=== PATIENT | female | born 1990 | race Caucasian/White ===

== ENCOUNTER 2016-04-05 06:36 | Emergency (ER) | payer OTHER ==
[~2016-04-05 06:36] MED LIST: VICODIN5-300 PO
--- NOTE | 2016-04-05 07:21 | ED NECK/BACK PAIN COMPLAINT ---
History of Present Illness General Chief Complaint: Lower Extremity Problems Stated Complaint: "LT SIDE BACK NUMBNESS RADIATES TO TOES" Source: patient, old records Exam Limitations: no limitations Vital Signs & Intake/Output Vital Signs & Intake/Output Vital Signs Date Time Temp Pulse Resp B/P Pulse O2 O2 Flow FiO2 Ox Delivery Rate 04/05 0952 98.6 86 18 126/85 98 Room Air 04/05 0840 97.9 69 20 137/70 100 Room Air 04/05 0651 97.8 90 20 137/83 98 Room Air Allergies Coded Allergies: NO KNOWN ALLERGIES (04/19/13) Reconcile Medications Baclofen 10 MG TABLET 1 TAB PO TIDPRN PRN muscle spasm/strain HYDROCODONE/ACETAMINOPHEN (Hydrocodon-Acetaminophen 5-325) 5 MG-325 MG TABLET 1 TAB PO TID PAIN Methylprednisolone. (Medrol) 4 MG TAB.DS.PK 0 PO SEE ADMIN CRITERIA back pain Tramadol HCl (Ultram) 50 MG TABLET 1-2 TAB PO Q6PRN PRN severe pain Triage Note: PT PRESENTS TO ER C/O OF LEFT HIP PAIN THAT STARTS AT TAILBONE AREA AND RADIATES INTO HIP AND DOWN LEFT LEG. PT STATES LEG FEELS NUMB. PT STATES SHE BROKE HER TAILBONE 3 YEARS AGO AND COMPLETED TWO ROUNDS OF PT BUT PAIN HAS NOT IMPROVED Triage Nurses Notes Reviewed? yes Onset: 2 weeks Duration: week(s):, constant, continues in ED Timing: recent history Quality/Severity: moderate, radiation, sharpness Location: lumbar spine, paraspinous muscles Radiation: buttocks, upper legs, lower legs, feet Context: unknown Method of Injury: unknown Loss of Consciousness: no loss of consciousness Modifying Factors: immobilization, movement, rest Associated Symptoms: lower back pain, muscle spasm, numbness in legs/feet LMP (ages 10-50): unknown : No Patient currently breastfeeds: No HPI: Patient reports having low back injury 2 years prior to admission. 2 weeks prior to admission she complains of increased left low back pain radiating to her buttocks upper leg and lower leg described as sharp moderate to severe worse with turning bending little improvement with anti-inflammatory. She denies fever chills nausea vomiting diarrhea abdominal pain chest pain shortness breath headache dysuria rash bleeding change in bowel bladder habit change in motor function. Past History Travel History Traveled to [place] past 21 day No Medical History Any Pertinent Medical History? see below for history Neurological: NONE EENT: NONE Cardiovascular: NONE Respiratory: NONE Gastrointestinal: GERD Hepatic: NONE Renal: FREQ UTI'S Musculoskeletal: disk herniation Psychiatric: NONE Endocrine: NONE Blood Disorders: NONE Cancer(s): NONE NURSING HOME DIRECTOR/Reproductive: NONE Surgical History Surgical History: NONE Psychosocial History What is your primary language Telugu Tobacco Use: Never used Family History Hx Contributory? No Review of Systems Review of Systems Constitutional: Reports: no symptoms. Eyes: Reports: no symptoms. Ears, Nose, Throat, Mouth: Reports: no symptoms. Respiratory: Reports: no symptoms. Cardiovascular: Reports: no symptoms. Gastrointestinal/Abdominal: Reports: no symptoms. Musculoskeletal: Reports: see HPI, back pain, joint pain, muscle pain. Skin: Reports: no symptoms. Neurological/Psychological: Reports: no symptoms. All Other Systems: Reviewed and Negative Physical Exam Physical Exam General Appearance: well developed/nourished, alert, awake, anxious, moderate distress, obese Head: atraumatic, normal appearance Eyes: Bilateral: PERRL, EOMI. Ears, Nose, Throat, Mouth: hearing grossly normal Neck: normal inspection, supple, full range of motion, normal alignment Respiratory: normal breath sounds, chest non-tender, no respiratory distress, quiet respiration, lungs clear Cardiovascular: regular rate/rhythm, normal peripheral pulses, norml femoral pulses equa Peripheral Pulses: 4+ carotid (R), 4+ carotid (L) Gastrointestinal: normal bowel sounds, soft, non-tender, no organomegaly Back: normal inspection, normal range of motion, no vertebral tenderness Extremities: non-tender, normal range of motion, no ligament instability Straight Leg Raising: Right: Pain at ____ degrees (15). Left: Pain at ____ degrees (15). Sensory: Medial Le: L4R, L4L. Top of Foot: 2: L5R, L5L. Sole of Foot: 2: SIR, ANAI. Motor: Deficit L4 Right: No Deficit L4 Left: No Deficit L5 Right: No Deficit L5 Left: No Deficit S1 Right: No Deficit S1 Right: No Walk on Heels: 2: L4 Left, L4 Right. Ext. Big Toe: 4: L5 Left. 5: L5 Right. DTR: Deficit L4 Left: No Deficit L4 Right: No Deficit S1 Left: No Deficit S1 Right: No Patellar: 3: L4 Right, L4 Left. 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 as tested Skin: intact, normal color, warm/dry Progress Differential Diagnosis: cauda equina syn, herniated disc, myofascial strain, sciatica, T/L spine injury Plan of Care: Orders Procedure Date/time Status URINE 04/05 713 Complete URINALYSIS 04/05 713 Complete COMPREHENSIVE METABOLIC PANEL 04/05 713 Complete Laboratory Tests 04/05/16 0725: Anion Gap 13, Estimated GFR > 60, BUN/Creatinine Ratio 15.7, Glucose 83, Calcium 9.5, Total Bilirubin 0.7, AST 23, ALT 19, Alkaline Phosphatase 65, Total Protein 7.1, Albumin 4.5, Globulin 2.6, Albumin/Globulin Ratio 1.7, Urinalysis LIGHT H, Urine Color YEL, Urine Clarity HAZY H, Urine pH 6.0, Ur Specific [place] >= 1.030, Urine Protein 30 H, Urine Ketones NEG, Urine Nitrite NEG, Urine Bilirubin NEG, Urine Urobilinogen 0.2, Ur Leukocyte Esterase NEG, Ur Microscopic SEDIMENT EXAMINED, Urine RBC RARE, Urine WBC 1-3 H, Ur Epithelial Cells PACKD H, Urine Mucus MOD H, Urine Hemoglobin NEG, Urine Glucose NEG, Urine Test NEGATIVE Diagnostic Imaging: Viewed by Me: CT Scan. Discussed w/RAD: CT Scan. Radiology Impression: There are disc protrusions at the L4-L5 and L5-S1 levels. Asymmetric right subarticular zone stenosis with possible mass effect on the traversing right L5 nerve root at L4-L5. Suspect mild to moderate central canal stenosis at L4-L5 and mild central canal stenosis at L5-S1. Mild to moderate foraminal narrowing bilaterally at L5-S1. MRI would be more sensitive in assessing for mass effect on the traversing or exiting nerve roots. Departure Departure Time of Disposition: 936 Disposition: HOME OR SELF CARE Condition: Stable Clinical Impression Primary Impression: Sciatica of left side associated with disorder of lumbar spine Secondary Impressions: Lumbar facet arthropathy, Lumbar spinal stenosis Referrals: SHAVONNE MENDOSA,JEREMY Resendez Call for neurosurgical follow up CHERELLE PEREZ MD Call for orthopedic follow up BRE RAY MD (PCP/Family) Departure Forms: Customer Survey General Discharge Information Prescriptions: Current Visit Scripts Baclofen 1 TAB PO TIDPRN PRN muscle spasm/strain #30 TAB Tramadol HCl (Ultram) 1-2 TAB PO Q6PRN PRN severe pain #30 TAB Methylprednisolone. (Medrol) 0 PO SEE ADMIN CRITERIA #1 PAC
--- NOTE | 2016-04-05 09:23 | CT SCAN REPORT ---
EXAMINATION: CT LUMBAR SPINE WITHOUT CONTRAST CLINICAL INFORMATION: Previous back injury with left low back pain. COMPARISON: None available. TECHNIQUE: Helical non-contrast CT images were obtained through the lumbar spine and 1.25 and 2.5 mm axial reconstructions were reviewed along with sagittal and coronal MPRs. FINDINGS: There are no acute fractures and there are no acute subluxations. Lumbar alignment is maintained. Vertebral body heights are preserved. Small chronic superior endplate Schmorl's node at T12. Disc spaces are maintained. No osteolytic and osteoblastic lesions. No acute fractures no acute subluxations. No significant soft tissue findings. The L1-L2, L2-L3, and L3-L4 disc contours appear normal. No appreciable central canal stenosis or significant foraminal stenosis at these levels. L4-L5: There is a central disc protrusion that indents the ventral thecal sac. Mild bilateral facet arthropathy. Suspect mild to moderate central canal stenosis. Asymmetric right subarticular zone effacement with possible mass effect on the traversing right L5 nerve root. No appreciable foraminal stenosis. L5-S1: There is a central disc protrusion and there is mild bilateral facet arthropathy. Suspect mild central canal stenosis. Narrowing of the subarticular zones bilaterally. Mild to moderate foraminal stenosis bilaterally. IMPRESSION: There are disc protrusions at the L4-L5 and L5-S1 levels. Asymmetric right subarticular zone stenosis with possible mass effect on the traversing right L5 nerve root at L4-L5. Suspect mild to moderate central canal stenosis at L4-L5 and mild central canal stenosis at L5-S1. Mild to moderate foraminal narrowing bilaterally at L5-S1. MRI would be more sensitive in assessing for mass effect on the traversing or exiting nerve roots.
[2016-04-05] MEDS ORDERED: ULTRAM50 M1 PO (09:39)
[2016-04-05] MEDS ORDERED: MEDROL4 M2 PO (09:39)
[2016-04-05] MEDS ORDERED: BACLOFEN10 M1 PO (09:39)
[2016-04-05 09:52] VITALS: BP 126/85
== END 2016-04-05 10:00 ==
LOC: ERH 06:36
DX: M51.16 Intervertebral disc disorders with radiculopathy, lumbar region (principal); M12.88 Other specific arthropathies, not elsewhere classified, other specified site; M48.06 Spinal stenosis, lumbar region
CPT/HCPCS: 81001; 81025; 96374; 96375

== ENCOUNTER 2016-08-07 17:38 | Emergency (ER) | payer OTHER ==
[~2016-08-07] VITALS: Ht 165.1 cm; Wt 77.1 kg
[~2016-08-07 17:38] MED LIST changes: +BACLOFEN10 M1 PO; +MEDROL4 M2 PO; +ULTRAM50 M1 PO
[2016-08-07 18:13] VITALS: BP 137/93
--- NOTE | 2016-08-07 18:30 | ED EYE COMPLAINT ---
History of Present Illness General Chief Complaint: Eye Problems Stated Complaint: LEFT EYE IS RED AND PAINFULL Source: patient Exam Limitations: no limitations Vital Signs & Intake/Output Vital Signs & Intake/Output Vital Signs Date Time Temp Pulse Resp B/P B/P Pulse O2 O2 Flow FiO2 Mean Ox Delivery Rate 08/07 1813 98.2 80 15 137/93 97 Room Air Room Air Allergies Coded Allergies: No Known Allergies (08/07/16) Reconcile Medications Erythromycin Base (Erythromycin) 5 MG/GRAM (0.5 %) OINT...G. 1 FATOU OPH 4XDP BLEPHARITIS apply 1 cm ribbon into the lower conjunctival sac Polytrim (Polytrim Eye Drops) 10,000 UNIT-1 MG/ML DROPS 1 GTT OPH Q6 CONJUNCTIVITIS Triage Note: PT TO ED FOR L EYE PAIN AND REDNESS AND DRAINAGE THAT STARTED TODAY. +BLURRINESS TO EYE. Triage Nurses Notes Reviewed? yes Onset: Gradual Duration: constant Timing: single episode today Injury Environment: home Severity: severe Severity Numbers: 7 : No Patient currently breastfeeds: No HPI: Patient is a 26-year-old female who presents to emergency room with concerns of left eye pain erythema purulent discharge and blurred vision where patient states that today she or her once today contacts which she put the contact in and then noted a few hours later a gradual onset of as stated above symptoms. Patient continues to wear contacts. Patient denies any mechanism of injury. Denies any photophobia (MARYCRUZ GAMEZ) Past History Travel History Traveled to [place] past 21 day No Medical History Any Pertinent Medical History? 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 No (MARYCRUZ GAMEZ) Review of Systems Review of Systems Constitutional: Reports: no symptoms. Eyes: Reports: see HPI, blurred vision, inflammation, pain, contact lenses. Denies: blindness, foreign body sensation. Ear: Reports: no symptoms. Nose: Reports: no symptoms. Mouth: Reports: no symptoms. Throat: Reports: no symptoms. Respiratory: Reports: no symptoms. Cardiovascular: Reports: no symptoms. GI: Reports: no symptoms. Genitourinary: Reports: no symptoms. Musculoskeletal: Reports: no symptoms. Skin: Reports: no symptoms. Neurological/Psychological: Reports: no symptoms. Hematologic/Endocrine: Reports: no symptoms. Immunologic/Allergic: Reports: no symptoms. All Other Systems: Reviewed and Negative (MARYCRUZ GAMEZ) Physical Exam General Appearance: well developed/nourished, no apparent distress, alert, awake General Inspection: CONJUNCTIVAE INJECTION Eyelid: everted for exam, erythema (INFERIOR LID) Conjunctiva/Sclera: injected Cornea: examined w/fluorescein, NO FLUOROSCEINE UPTAKE EOM: intact Pupil: normal accommodation, normal pupil, PERRL General Inspection: normal inspection Eyelid: normal inspection Conjunctiva/Sclera: normal inspection Cornea: normal inspection EOM: intact Pupil: normal accommodation, normal pupil, PERRL Physical Exam Head: atraumatic Ears: Bilateral: canal normal. Nose: normal inspection Mouth/Throat: normal mouth inspection Neck: normal inspection Neurologic/Psych: awake, alert Skin: intact, normal color (MARYCRUZ GAMEZ) Progress Differential Diagnosis: corneal abrasion, corneal foreign body, conjunctivitis, detached retina, glaucoma, globe rupture, BLEPHARITIS Plan of Care: Due to history of present illness and exam findings patient will be treated for concerns of left bacterial conjunctivitis and left blepharitis inferior lid patient remove contacts prior to evaluation Patient was also administered tetracaine eyedrops prior to evaluation of eye (MARYCRUZ GAMEZ) Departure Departure Disposition: HOME OR SELF CARE Condition: Stable Clinical Impression Primary Impression: Bacterial conjunctivitis of left eye Secondary Impressions: Blepharitis of eyelid of left eye Referrals: BRE RAY MD (PCP/Family) GISELL MENDOSA,SHARIF Resendez Additional Instructions: As discussed please discontinue using contact lenses until you are symptom-free. Begin the prescription Polytrim eyedrops and erythromycin ointment as directed for your symptoms. Prescription is waiting a [facility]. If symptoms worsen return to emergency room. If no better in 3 days follow-up with primary care doctor and/or follow-up with order packer or packager Dr. JAMESON Departure Forms: Customer Survey General Discharge Information Prescriptions: Current Visit Scripts Polytrim (Polytrim Eye Drops) 1 GTT OPH Q6 #10 ML Erythromycin Base (Erythromycin) 1 FATOU OPH 4XDP #3.5 GM apply 1 cm ribbon into the lower conjunctival sac (MARYCRUZ GAMEZ) PA/SENIOR SOFTWARE QUALITY ANALYST Co-Sign Statement Statement: ED Attending supervision documentation- I saw and evaluated the patient. I have also reviewed all the pertinent lab results and diagnostic results. I agree with the findings and the plan of care as documented in the PA's/SENIOR SOFTWARE QUALITY ANALYST's documentation. x I have reviewed the ED Record and agree with the PA's/SENIOR SOFTWARE QUALITY ANALYST's documentation. [] Additions or exceptions (if any) to the PAs/SENIOR SOFTWARE QUALITY ANALYST's note and plan are summarized below: [] (PIPE MENDOSA,CAROLANN)
[2016-08-07] MEDS ORDERED: POLYTRIM EYE DR10 ML OPH (18:57)
[2016-08-07] MEDS ORDERED: ERYTHROMYCIN1 GM OPH (18:57)
== END 2016-08-07 19:06 ==
LOC: ERH 17:38
DX: H10.9 Unspecified conjunctivitis (principal); H01.005 Unspecified blepharitis left lower eyelid

== ENCOUNTER 2017-04-29 18:41 | Emergency (ER) | payer OTHER ==
[~2017-04-29] VITALS: Ht 162.6 cm; Wt 79.4 kg
[~2017-04-29 18:41] MED LIST changes: +ERYTHROMYCIN1 GM OPH; +POLYTRIM EYE DR10 ML OPH
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
[2017-04-29 19:48] LABS: ABSOLUTE BASOPHIL COUNT 0 /CUMM (0.0-0.2); ABSOLUTE EOSINOPHIL COUNT 0.1 /CUMM (0.0-0.7); ABSOLUTE GRANULOCYTE CT 2.2 /CUMM (1.4-6.5); ABSOLUTE LYMPH COUNT 2.4 /CUMM (1.2-3.4); ABSOLUTE MONOCYTE COUNT 0.4 /CUMM (0.10-0.60); BASOPHIL % 0.5 % (0.0-2.0); EOSINOPHIL % 1.3 % (0-5); GRANULOCYTE % 42.6 % (42.2-75.2); HEMATOCRIT 37.6 % (37-47); MEAN CORPUSCULAR HGB 28.2 PG (27.0-31.0); MEAN CORPUSCULAR HGB CONC 33.1 G/DL (33.0-37.0); MEAN PLATELET VOLUME 8.9 FL (7.4-10.4); PLATELET COUNT 172 /CUMM (130-400); RBC DISTRIBUTION WIDTH 14.6 % (11.5-14.5); RED BLOOD CELL CT 4.42 /CUMM (4.20-5.40); WHITE BLOOD CELL COUNT 5.1 /CUMM (4.8-10.8)
[2017-04-29 20:25] LABS: PTT 30 SEC (25-37)
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
[2017-04-29] MEDS ORDERED: ROBAXIN500 M1 PO (22:07)
[2017-04-29] MEDS ORDERED: NAPROSYN500 M1 PO (22:07)
[2017-04-29 22:12] VITALS: BP 126/91
== END 2017-04-29 22:13 ==
LOC: ERH 18:41
PROVIDERS: Physician Assistant
DX: S09.90XA Unspecified injury of head, initial encounter (principal); S16.1XXA Strain of muscle, fascia and tendon at neck level, initial encounter; S20.212A Contusion of left front wall of thorax, initial encounter; S30.1XXA Contusion of abdominal wall, initial encounter; M25.561 Pain in right knee; M25.511 Pain in right shoulder; M54.2 Cervicalgia
CPT/HCPCS: 73030-RT; 73562-RT; 74177; 81025; 93005; 93010; 96374; J0131